=== PATIENT | male | born 1965 | race Caucasian/White ===

== ENCOUNTER 2020-08-12 10:20 | Inpatient (IN) ==
[2020-08-12] MEDS ORDERED: DILTIAZEM 50 MG/10 ML VIAL IV STA ×3 (11:04→12:20)
[2020-08-12 11:11] LABS: Basophils # 0.1 10*3/uL (0.0-0.2); Basophils % 0.8 % (0.0-0.8); Eosinophils # 0.1 10*3/uL (0.0-0.87); Eosinophils % 0.9 % (0.00-10.9); Hematocrit 44.3 VOL% (42.0-52.0); Hemoglobin 15.1 GM/DL (14.0-18.0); Immature Granulocytes % 0.3 %; Immature Granulocytes Absolute 0.02 #; Lymphocytes % 14.5 % (21.2-54.2); Mean Corpuscular HGB Conc 34.1 GM/DL (32-36); Monocytes % 7.8 % (1.7-12.7); Neutrophils % 75.7 % (38.7-73.9); Platelet Count 218 T/CUMM (130-400); Red Blood Count 4.92 MC/CUMM (3.8-5.5); Red Cell Distribution Width 13.4 % (9.3-17.3); White Blood Count 6.6 T/CUMM (4-12)
[2020-08-12 11:18] LABS: INR 1.2; PT Patient Result 12.8 SECS (9.8-11.9); Partial Thromboplastin Time 29.7 SECS (23.9-33.8)
[2020-08-12] MEDS: dilTIAZem Drip 125 MG/125 ML PREMIX IV SCH (11:24)
[2020-08-12 11:38] LABS: Albumin 3.5 G/DL (3.4-5.0); Bilirubin,Total 1.2 MG/DL (0.2-1.0); Calcium 8.7 MG/DL (8.5-10.1); Osmolality,Calculated 275.7 MOS/KG (273-304); Potassium 4.1 MMOL/L (3.5-5.1); Thyroid Stimulating Hormone 1.07 uIU/ml (0.358-3.74); Total Protein 7.2 G/DL (6.4-8.3)
[2020-08-12] MEDS ORDERED: MAGNESIUM SULF RIDER 4 GM in PREMIX 1 EACH IV PRN (12:35)
[2020-08-12] MEDS ORDERED: ACETAMINOPHEN 325 MG TABLET PO PRN (12:35)
[2020-08-12] MEDS ORDERED: MORPHINE 4 MG/1 ML VIAL IV PRN (12:35)
[2020-08-12] MEDS ORDERED: guaiFENesin/DM ER 600-30 MG TABLET PO PRN (12:35)
[2020-08-12] MEDS ORDERED: ZALEPLON 5 MG CAPSULE PO PRN (12:35)
[2020-08-12] MEDS ORDERED: POTASSIUM CHLORIDE 20 MEQ TABLET PO PRN (12:35)
[2020-08-12] MEDS ORDERED: BISACODYL 5 MG TABLET PO PRN (12:35)
[2020-08-12] MEDS ORDERED: ONDANSETRON 4 MG/2 ML VIAL IV PRN (12:35)
[2020-08-12] MEDS ORDERED: hydrALAZINE 20 MG/1 ML VIAL IV PRN (12:35)
[2020-08-12] MEDS ORDERED: MAGNESIUM SULF RIDER 2 GM in PREMIX 1 EACH IV PRN (12:35)
[2020-08-12] MEDS ORDERED: ALUMINUM/MAGNES/SIMETH MAX STR 30 ML UDCUP PO PRN (12:35)
[2020-08-12] MEDS ORDERED: diphenhydrAMINE CAP 25 MG CAPSULE PO PRN (12:35)
[2020-08-12] MEDS ORDERED: PROMETHAZINE 25 MG TABLET PO PRN (12:35)
[2020-08-12] MEDS ORDERED: METOPROLOL TARTRATE 25 MG TABLET PO STA (12:46)
[2020-08-12] MEDS ORDERED: FUROSEMIDE 40 MG/4 ML VIAL IV STA (13:25)
[2020-08-12] MEDS: APIXABAN 5 MG TABLET PO SCH ×2 (15:52→22:37)
[2020-08-12 17:37] LABS: Bilirubin,Urine Negative (Negative); Blood, Urine Negative (Negative); Glucose,Urine (UA) Negative (Negative); Ketones,Urine Negative (Negative); Mucus,Urine Occasional /LPF (Occasional); Nitrite,Urine Negative (Negative); Protein,Urine 100 MG/DL; Urine Appearance CLEAR (Clear); Urine Color Yellow (Yellow); Urine Specific Gravity 1.011 (1.001-1.035); Urine Urobilinogen < 2.0 EU/DL (0.2-1.0); WBC,Urine <1 /HPF (0-6)
[2020-08-12] MEDS ORDERED: SODIUM CHLORIDE 0.9% 500 ML IV STA (17:58)
[2020-08-12] MEDS ORDERED: METOPROLOL TARTRATE 25 MG TABLET PO SCH (21:00)
[2020-08-12] MEDS ORDERED: SIMVASTATIN 80 MG TABLET PO SCH (21:00)
[2020-08-12 21:04] LABS: Barbiturates Screen,Urine Negative (Negative); Benzodiazepines Screen,Urine Negative (Negative); Cannabinoid Screen,Urine Positive (Negative); Opiate Screen,Urine Positive (Negative); Phencyclidine Screen,Urine Negative (Negative)
[2020-08-13 05:57] LABS: Basophils # 0.1 10*3/uL (0.0-0.2); Eosinophils # 0.1 10*3/uL (0.0-0.87); Hematocrit 43.9 VOL% (42.0-52.0); Hemoglobin 14.6 GM/DL (14.0-18.0); Immature Granulocytes % 0.5 %; Immature Granulocytes Absolute 0.04 #; Lymphocytes # 1.8 10*3/uL (1.4-4.0); Lymphocytes % 22.6 % (21.2-54.2); Mean Corpuscular HGB Conc 33.3 GM/DL (32-36); Mean Platelet Volume 10.6 FL (9.6-12.0); Monocytes % 9.8 % (1.7-12.7); Neutrophils % 65.1 % (38.7-73.9); Platelet Count 241 T/CUMM (130-400); Red Blood Count 4.77 MC/CUMM (3.8-5.5); Red Cell Distribution Width 13.7 % (9.3-17.3); White Blood Count 8.1 T/CUMM (4-12)
[2020-08-13 06:21] LABS: Blood Urea Nitrogen 23 MG/DL (7-18); Calcium 8.8 MG/DL (8.5-10.1); Carbon Dioxide 25 MMOL/L (21-32); Estimated Glom Filtration Rate 9 ML/MIN; Glucose 88 MG/DL (74-106); HDL Cholesterol 39 MG/DL (40-60); Osmolality,Calculated 275.8 MOS/KG (273-304); Potassium 4.1 MMOL/L (3.5-5.1); Risk Ratio 4.69; Sodium 137 MMOL/L (136-145); Triglycerides 72 MG/DL (2-150); VLDL CHOLESTEROL 14.4 MG/DL
[2020-08-13 06:23] LABS: Troponin I 0.083 NG/ML (0.00-0.045)
[2020-08-13] MEDS ORDERED: FUROSEMIDE 40 MG/4 ML VIAL IV SCH (08:00)
[2020-08-13] MEDS ORDERED: carvediloL 6.25 MG TABLET PO SCH (09:00)
[2020-08-13] MEDS: PANTOPRAZOLE 40 MG TABLET PO SCH (09:09)
[2020-08-13] MEDS: ASPIRIN EC 81 MG TABLET PO SCH (09:09)
[2020-08-13] MEDS: APIXABAN 5 MG TABLET PO SCH ×2 (09:09→21:48)
[2020-08-13] MEDS ORDERED: DIGOXIN 0.5 MG/2 ML AMP IV ONE (09:53)
[2020-08-13] MEDS: dilTIAZem Drip 125 MG/125 ML PREMIX IV SCH (10:40)
[2020-08-13] MEDS: carvediloL 12.5 MG TABLET PO SCH (21:48)
[2020-08-14 06:16] LABS: Calcium 8.1 MG/DL (8.5-10.1); Osmolality,Calculated 278.7 MOS/KG (273-304); Potassium 3.8 MMOL/L (3.5-5.1)
[2020-08-14] MEDS ORDERED: lisinopriL 2.5 MG TABLET PO SCH (09:30)
[2020-08-14] MEDS: ROSUVASTATIN 20 MG TABLET PO SCH (09:31)
[2020-08-14] MEDS: ASPIRIN EC 81 MG TABLET PO SCH (09:31)
[2020-08-14] MEDS: APIXABAN 5 MG TABLET PO SCH ×2 (09:32→21:22)
[2020-08-14] MEDS: DOCUSATE SODIUM 100 MG CAPSULE PO PRN (09:32)
[2020-08-14] MEDS: PANTOPRAZOLE 40 MG TABLET PO SCH (09:32)
[2020-08-14] MEDS: carvediloL 12.5 MG TABLET PO SCH ×2 (09:32→21:23)
[2020-08-14] MEDS ORDERED: POTASSIUM CHLORIDE 20 MEQ TABLET PO ONE (10:00)
[2020-08-14] MEDS ORDERED: MAGNESIUM SULF RIDER 2 GM in PREMIX 1 EACH IV ONE (10:00)
[2020-08-14] MEDS: dilTIAZem Drip 125 MG/125 ML PREMIX IV SCH (10:30)
[2020-08-14] MEDS: SPIRONOLACTONE 25 MG TABLET PO SCH (10:33)
[2020-08-14] MEDS: AMIODARONE 200 MG TABLET PO SCH ×2 (12:16→21:22)
[2020-08-14] MEDS: DIGOXIN 0.125 MG TABLET PO SCH (12:16)
[2020-08-14] MEDS: NIACIN 500 MG TABLET PO SCH (21:23)
[2020-08-15 06:49] LABS: Calcium 8.6 MG/DL (8.5-10.1); Osmolality,Calculated 275.7 MOS/KG (273-304); Potassium 4.5 MMOL/L (3.5-5.1)
[2020-08-15] MEDS ORDERED: POTASSIUM GLUCONATE 500 MG TABLET PO SCH (09:00)
[2020-08-15] MEDS ORDERED: NON-FORMULARY MEDICATION (Biotin 1 mg Tablet) PO SCH (09:00)
[2020-08-15] MEDS: SPIRONOLACTONE 25 MG TABLET PO SCH (09:01)
[2020-08-15] MEDS: ROSUVASTATIN 20 MG TABLET PO SCH (09:01)
[2020-08-15] MEDS: ASPIRIN EC 81 MG TABLET PO SCH (09:01)
[2020-08-15] MEDS: DOCUSATE SODIUM 100 MG CAPSULE PO PRN (09:02)
[2020-08-15] MEDS: PANTOPRAZOLE 40 MG TABLET PO SCH (09:02)
[2020-08-15] MEDS: carvediloL 12.5 MG TABLET PO SCH (09:02)
[2020-08-15] MEDS: AMIODARONE 200 MG TABLET PO SCH (09:02)
[2020-08-15] MEDS: APIXABAN 5 MG TABLET PO SCH (09:02)
[2020-08-15] MEDS: NIACIN 500 MG TABLET PO SCH (09:26)
[2020-08-15] MEDS ORDERED: MAGNESIUM HYDROXIDE SUSP 30 ML UDCUP PO ONE (09:28)
[2020-08-15] MEDS ORDERED: POLYETHYLENE GLYCOL POWDER 17 GM PACK PO SCH (09:30)
[2020-08-15] MEDS ORDERED: DOCUSATE SODIUM 100 MG CAPSULE PO SCH (09:30)
[2020-08-15] MEDS: DIGOXIN 0.125 MG TABLET PO SCH (12:26)
[2020-08-15 13:40] VITALS: BP 108/61
[2020-08-16] MEDS ORDERED: FUROSEMIDE 20 MG TABLET PO SCH (09:00)
== END 2020-08-15 17:59 | disposition home or self-care (01) | DRG 308 ==
LOC: N.EDINP 10:20 → N.ED 10:20 → N.TELES 22:12
PROVIDERS: ADMIT Internal Medicine Cardiovascular Disease; ATTEND Internal Medicine Cardiovascular Disease